=== PATIENT | female | born 1975 | race Caucasian/White ===

== ENCOUNTER 2020-09-08 18:53 | Emergency (ER) | payer BC, OTHER, SELFPAY ==
[2020-09-08] MEDS ORDERED: Acetaminophen 500 MG TAB ONE (20:42)
[2020-09-08] MEDS ORDERED: Ibuprofen 200 MG TAB ONE (20:42)
== END 2020-09-08 22:05 | disposition home or self-care (01) ==
LOC: CSHERS 18:53
DX: S86.012A Strain of left Achilles tendon, initial encounter (principal); X50.0XXA Overexertion from strenuous movement or load, initial encounter
CPT/HCPCS: 29515

== ENCOUNTER 2023-11-23 11:06 | Outpatient (CLI) | payer BC | END 2023-11-23 11:07 | disposition home or self-care (01) | LOC: CSHMAMMO 11:06 | PROVIDERS: ATTEND Obstetrics & Gynecology | DX: Z12.31 Encounter for screening mammogram for malignant neoplasm of breast (principal); Z98.82 Breast implant status; Z98.890 Other specified postprocedural states | CPT/HCPCS: 77063; 77067 ==

== ENCOUNTER 2024-12-03 15:04 | Outpatient (CLI) | payer BC | END 2024-12-03 15:05 | disposition home or self-care (01) | LOC: CSHMAMMO 15:04 | PROVIDERS: ATTEND Nurse Practitioner Family | DX: Z12.31 Encounter for screening mammogram for malignant neoplasm of breast (principal); Z98.82 Breast implant status | CPT/HCPCS: 77063; 77067 ==